=== PATIENT | female | born 1995 | race Two or more races ===

== ENCOUNTER 2025-04-25 18:09 | Emergency (ER) | payer BC, OTHER ==
--- NOTE | 2025-04-25 19:14 | ED.PDOC ---
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 The patient came to the ED with chief complain of 2 hrs of vaginal bleeding, dark read with some clots and possible tissue, she has used only one pad; associated with pelvic pain 5/10, cramp-like pain. The patient reports she is 7 weeks , LMP was 03/10/25, she has not started yet her care. This is her first , her blood type is O(-). The patient denies fever, chills, chest pain, headache or other symptoms. In the ED her BP: 133/96mmHg, HR: 115bpm. The patient will be further assessed. Attestation note: Dr. Choi: I was the supervising attending for this ED encounter. Please see the resident's notes. I have personally seen and evaluated this patient. I was available for questions and consultations. HPI: 30 year old female presents to the ED with a chief complaint of vaginal bleeding onset today (04/25/25) about 2 hours prior to ED arrival. Patient is currently 7 weeks , P:0 LMP 03/10/25. Patient is from [place], is in town due to 's work. She began experiencing abdominal cramping, heavy vaginal bleeding, clots present. Patient states she is O-. Denies fever, chills, fall, injury, dysuria, dizziness, headache, fever, chills, nausea, vomiting, diarrhea. No other symptoms or modifying factors present at this time. Differential diagnosis: Differential diagnosis includes but not limited to DU B, menorrhea, metromenorrhagia, neoplasm, coagulopathy, , trauma, miscarriage, placenta previa, placental abruption, MDM: MDM: patient presented with the above HPI.---vaginal bleeding ---workup was initiated. patient was found with the above mentioned diagnosis. the following medications were ordered: please refer to order lists of meds and tests obtained by myself Dr. Choi. Patient ED course and VS have been stabilized. Patient has been reassessed in the ED and remained in a stable condition. Pertinent incidental findings were discussed with the patient and/or family. Patient/family voices understanding and is agreeable with plan. Patient has been observed in the ED adequate length of time to insure improvement/stability. Escalation of care considered: Consideration of escalation to observation or admission OB Gyne was consulted. Patient was DISCHARGED home in a stable condition. All the reports of any imaging studies that were ordered by myself were reviewed by myself. Chief Complaint: Vaginal Bleed Time Seen by MD: 18:43 Reviewed Notes: Nurses Notes, Medications, Allergies Allergies: Uncoded Allergies: SULFA (Allergy, Unknown, 04/25/25) Home Meds Active Scripts Ondansetron Odt 4MG Tab (ZOFRAN PO) 4 Mg Tb, 4 MG PO Q8HPRN PRN for 3 Days, #9 TAB ODT TAB-DISSOLVE IN MOUTH, THEN SWALLOW Prov:SHELLY CHOI DO 04/26/25 Cephalexin Monohydrate (Cephalexin) 500 Mg Cap, 500 MG PO Q8HR for 5 Days, #15 CAP Prov:SHELLY CHOI DO 04/26/25 Information Source: Patient, Spouse Mode of Arrival: Ambulatory Timing: Hours Severity: Moderate Bleeding Quality: Dark, Clotted Onset Of Mass/Bleeding: Spontaneous Past Medical History PAST MEDICAL HISTORY: Denies Surgical History: Denies all surgeries 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 1 Para 0 AB 0 LMP 03/10/2025 Family History Family History: Reviewed,noncontributory to illness Social History Smoker: Other (Nicotine vape, she quit after finding about the .) Alcohol: Denies ETOH Use Drugs: Denies Drug Use Lives In: Home Constitutional: denies: chills, diaphoresis, fatigue, fever, malaise, sweats, weakness, others EENTM: denies: blurred vision, double vision, ear bleeding, ear discharge, ear drainage, ear pain, ear ringing, eye pain, eye redness, hearing loss, mouth pain, mouth swelling, nasal discharge, nose bleeding, nose congestion, nose pain, photophobia, tearing, throat pain, throat swelling, voice changes, others Respiratory: denies: cough, hemoptysis, orthopnea, SOB at rest, shortness of breath, SOB with excertion, stridor, wheezing, others Cardiovascular: denies: chest pain, dizzy spells, diaphoresis, Dyspnea on exertion, edema, irregular heart beat, left arm pain, lightheadedness, palpitations, PND, syncope, others Gastrointestinal: denies: abdomen distended, abdominal pain, blood streaked bowels, constipated, diarrhea, dysphagia, difficulty swallowing, hematemesis, melena, nausea, poor appetite, poor fluid intake, rectal bleeding, rectal pain, vomiting, others Genitourinary: reports: abnormal vagina bleeding, pain (pelvic pain.), Neurological: denies: dizziness, fainting, headache, left sided numbness, left sided weakness, numbness, paresthesia, pre-existing deficit, right sided numbness, right sided weakness, seizure, speech problems, tingling, tremors, weakness, others Musculoskeletal: denies: back pain, gout, joint pain, joint swelling, muscle pain, muscle stiffness, neck pain, others Integumetry: denies: bruises, change in color, change in hair/nails, dryness, laceration, lesions, lumps, rash, wounds, others Allergic/Immunocompromised: denies: Difficulty Healing, Frequent Infections, Hives, Itching, others Hematologic/Lymphatic: denies: anemia, blood clots, easy bleeding, easy bruising, swollen glands, others Endocrine: denies: excessive hunger, excessive sweating, excessive thirst, excessive urination, flushing, intolerance to cold, intolerance to heat, unexplained weight gain, unexplained weight loss, others Psychiatric: denies: anxiety, bipolar disorder, depression, hopeless, panic disorder, schizophrenia, sleepless, suicidal, others Physical Exam Exam Comments Alert, oriented x3. General Appearance: Mild Distress HEENT: Normal ENT Inspection, Pharynx Normal, TMs Normal Neck: Full Range of Motion, Non-Tender, Normal, Normal Inspection Respiratory: Chest Non-Tender, Lungs Clear, No Accessory Muscle Use, No Respiratory Distress, Normal Breath Sounds Cardiovascular: No Edema, No JVD, No Murmur, No Gallop, Normal Peripheral Pulses, Regular Rate/Rhythm Breast Exam: Deferred Gastrointestinal: No Organomegaly, Non Tender, No Pulsatile Mass, Normal Bowel Sounds, Soft Genitalia: Deferred Pelvic: Deferred Rectal: Deferred Extremities: No calf tenderness, Normal capillary refill, Normal inspection, Normal range of motion, Non-tender, No pedal edema Musculoskeletal : Apperance: Normal Neurologic: Alert, motor operator II-XII nml as Tested, No Motor Deficits, Normal Affect, Normal Mood, No Sensory Deficits Cerebellar Function: Normal Reflexes: Normal Skin: Dry, Normal Color, Warm Lymphatic: No Adenopathy Was a procedure done? Was a procedure done?: No Differential Diagnosis (RESEARCH FOOD TECHNOLOGIST) Vaginal Bleeding: - Incomplete, - Inevitable, - Threatened, Abruptio Placentae, Ectopic Mass / Lesion: N/A Vaginal Discharge: N/A X-Ray, Labs, Meds, VS Vital Signs Date Time Temp Pulse Resp B/P (MAP) Pulse Ox O2 Delivery O2 Flow Rate FiO2 04/26/25 02:55 98.7 85 18 127/85 98.7 04/26/25 01:19 98.4 90 18 116/96 (103) 96 98.4 04/25/25 23:22 92 17 114/98 (103) 98 04/25/25 23:09 98.4 98 16 132/94 (107) 97 98.4 04/25/25 22:45 114/68 04/25/25 20:15 97.8 84 14 113/79 (90) 98 97.8 04/25/25 20:15 84 14 98 Room Air 04/25/25 18:11 98.5 115 18 133/96 96 98.5 Lab Test 04/25/25 20:40 04/25/25 19:32 Range/Units Urine Color Light-orange Yellow Urine Clarity Turbid H Clear Urine pH 6.5 5.0-9.0 Urine Specific [place] 1.029 1.001-1.035 Urine Protein 1+ H Negative Urine Ketones 4+ H Negative Urine Blood 3+ H Negative /uL Urine Nitrite Negative Negative Urine Bilirubin Negative Negative Urine Urobilinogen Normal Negative mg/dL Urine Leukocyte Esterase 1+ Negative /uL Urine RBC 469 0 - 4 /hpf Urine Microscopic WBC 9 H 0-5 /HPF Urine Squamous Epithelial Cells Few <5 /hpf Urine Bacteria None seen None Seen /hpf Urine Mucus Few None Seen Urine Glucose Normal Normal mg/dL White Blood Count 9.6 4.4-10.8 10^3/uL Red Blood Count 4.36 4.0-5.20 10^6/uL Hemoglobin 13.0 12.2-16.2 g/dL Hematocrit 37.5 36.0-46.0 % Mean Corpuscular Volume 85.9 80.0-100.0 fL Mean Corpuscular Hemoglobin 29.7 28.0-32.0 pg Mean Corpuscular Hemoglobin Concent 34.6 32.0-36.0 g/dL Red Cell Distribution Width 12.4 11.8-14.3 % Platelet Count 301 140-450 10^3/uL Mean Platelet Volume 8.1 6.9-10.8 fL Neutrophils (%) (Auto) 66.0 37.0-80.0 % Lymphocytes (%) (Auto) 24.5 10.0-50.0 % Monocytes (%) (Auto) 8.8 0.0-12.0 % Eosinophils (%) (Auto) 0.1 0.0-7.0 % Basophils (%) (Auto) 0.6 0.0-2.0 % Neutrophils # (Auto) 6.4 1.6-8.6 10 ^3/uL Lymphocytes # (Auto) 2.4 0.4-5.4 10 ^3/uL Monocytes # (Auto) 0.8 0-1.3 10 ^3/uL Eosinophils # (Auto) 0 0-0.8 10 ^3/uL Basophils # (Auto) 0.1 0-0.2 10 ^3/uL Nucleated Red Blood Cells 0.0 % Sodium Level 142 136-145 mmol/L Potassium Level 3.6 3.5-5.1 mmol/L Chloride Level 106 98-107 mmol/L Carbon Dioxide Level 23 20-31 mmol/L Anion Gap 13 5-15 Blood Urea Nitrogen 10 9-23 mg/dL Creatinine 0.68 0.550-1.02 mg/dL Glomerular Filtration Rate Calc 120 >90 mL/min BUN/Creatinine Ratio 14.7 10.0-20.0 Serum Glucose 118 H 74-106 mg/dL Calcium Level 9.9 8.7-10.4 mg/dL Total Bilirubin 0.5 0.2-1.0 mg/dL Aspartate Amino Transferase (AST) 20 13-40 U/L Alanine Aminotransferase (ALT) 16 7-40 U/L Alkaline Phosphatase 60 46-116 U/L Total Protein 8.4 H 5.7-8.2 g/dL Albumin 5.2 H 3.2-4.8 g/dL Beta HCG, Quantitative 1569.8 H 1.5-4.2 mIU/mL [facility] [address] [facility] [address] Ph: [phone] DIAGNOSTIC IMAGING Diagnostic Imaging Report : [id number] Signed PATIENT: MONICA CAMARILLO ACCT: [id number] UNIT: [id number] : 1995 LOC: ER ROOM / BED: / AGE / SEX: 30 / F ADM STATUS: REG ER SERVICE 15 ORDERING PHYSICIAN: SHELLY CHOI DO PROCEDURE(s): OB4US - OB ULTRASOUND COMP LESS 14WKS REASON: VAG BLEED ORDER NUMBER(s): [id number], ACCESSION NUMBER(s): [id number] INDICATION: VAG BLEED TECHNIQUE: Multiple real-time grayscale transabdominal and transvaginal sonographic images along with color and duplex Doppler of the uterus and ovaries were obtained. COMPARISON: None FINDINGS: The uterus measures 6.4 x 5.2 x 4.3 cm. No intrauterine gestational sac or cavitary fluid. The endometrial stripe measures 7 mm. Right ovary measures 1.9 x 1.5 x 2.2 cm with normal Doppler color flow. Left ovary measures 3.1 x 1.7 x 2.3 cm with normal Doppler color flow. No visualized ascites. IMPRESSION: No intrauterine gestational sac. In the setting of positive laboratory processed for the exam is consistent with of unknown location, a designation which includes normal early and does not exclude ectopic . Recommend trending of quantitative beta HCG values and follow-up ultrasound in 2 weeks for reassessment, or sooner if clinically indicated. ATED BY: TOBY CAMPOVERDE MD DICTATED DATE/TIME: 04/25/252250 SIGNED BY: TOBY CAMPOVERDE MD SIGNED DATE/TIME: 04/25/252250 CC: X-Ray, Labs, Meds, VS Comment The patient has been reassessed, the patient still report vaginal bleeding. CBC: WBC: 9.6x10e3, Hb: 13.0 BMP:Na: 142mmol/l K: 3.6mmol/l Abdominal US report is still pending Time of 1ST Reevaluation: 20:14 Reevaluation 1ST: Unchanged Time of 2ND Reevaluation: 00:44 (The case was discussed with the OB Gyne on- call team (HPI, physical exam, labs and diagnostic tests that were available at the time of disposition, ED course, treatment plan) on the phone. They recommend RhoGAM 300 mcg and outpatient follow up in two days for beta-hCG and repeat ultrasound.) Reevaluation 2ND: Improved Patient Education/Counseling: Diagnosis, Treatment, Prognosis, Need For Follow Up Family Education/Counseling: Diagnosis, Treatment, Prognosis, Need For Follow Up Departure 1 Departure Time of Disposition: 00:37 Impression: Primary Impression: Threatened in early Additional Impression: Need for rhogam due to Rh negative mother Disposition: HOME / SELF CARE / HOMELESS Condition: Stable Additional Instructions: Additional instructions: Please read all instructions provided in this packet carefully. You MUST follow-up with your primary care/family doctor in 1 to 2 days. If you are unable to see your primary care/family doctor, please return to our emergency room for re-assessment and re-evaluation in 1 to 2 days. Return to the emergency room here in our facility or to the nearest ER [facility] if your symptoms change or worsen. CONSULTATIONS: you MUST Follow-up for consultation as soon as possible with: Dr.-OB Reid doctor in 1-2 days. Please call for appointment You MUST call the consultants office yourself to make an appointment. You may need to arrange that through your insurance and/or your primary/family doctor. If you are unable to see the instructional systems design consultant in 1 to 2 days, you must return to our emergency room (or any other ER of your choice) for re-assessment and re- evaluation. Adequate fluid hydration. Although you have been discharged from the Emergency Department, this does not mean that you have a "clean bill of health". No definitive diagnosis for your symptoms has been made today. It is possible that you are in the process of developing a serious illness. This is why you must return to the ED without fail if any new or worsening symptoms develop. Absolute pelvic rest. Take daily iron supplements. Repeat beta-hCG levels in 48-72 hours. Beta HCG from 04/25/25 at 19:32, 1569.8 Repeat pelvic ultrasound in two days. Below is a copy of your radiological report for follow up: [facility] [address] [place] [id number] Ph: [phone] DIAGNOSTIC IMAGING Diagnostic Imaging Report : [id number] Signed PATIENT: MONICA CAMARILLO ACCT: [id number] UNIT: [id number] : 1995 LOC: ER ROOM / BED: / AGE / SEX: 30 / F ADM STATUS: REG ER SERVICE 15 ORDERING PHYSICIAN: SHELLY CHOI DO PROCEDURE(s): OB4US - OB ULTRASOUND COMP LESS 14WKS REASON: VAG BLEED ORDER NUMBER(s): [id number], ACCESSION NUMBER(s): [id number] INDICATION: VAG BLEED TECHNIQUE: Multiple real-time grayscale transabdominal and transvaginal sonographic images along with color and duplex Doppler of the uterus and ovaries were obtained. COMPARISON: None FINDINGS: The uterus measures 6.4 x 5.2 x 4.3 cm. No intrauterine gestational sac or cavitary fluid. The endometrial stripe measures 7 mm. Right ovary measures 1.9 x 1.5 x 2.2 cm with normal Doppler color flow. Left ovary measures 3.1 x 1.7 x 2.3 cm with normal Doppler color flow. No visualized ascites. IMPRESSION: No intrauterine gestational sac. In the setting of positive laboratory processed for the exam is consistent with of unknown location, a designation which includes normal early and does not exclude ectopic . Recommend trending of quantitative beta HCG values and follow-up ultrasound in 2 weeks for reassessment, or sooner if clinically indicated. ATED BY: TOBY CAMPOVERDE MD DICTATED DATE/TIME: 04/25/252250 SIGNED BY: TOBY CAMPOVERDE MD SIGNED DATE/TIME: 04/25/252250 CC: e-Prescriptions Ondansetron Odt 4MG Tab (ZOFRAN PO) 4 Mg Tb 4 MG PO Q8HPRN PRN for 3 Days, #9 TAB ODT TAB-DISSOLVE IN MOUTH, THEN SWALLOW Prov: SHELLY CHOI DO 04/26/25 Cephalexin Monohydrate (Cephalexin) 500 Mg Cap 500 MG PO Q8HR for 5 Days, #15 CAP Prov: SHELLY CHOI DO 04/26/25 Discharged With: Self Comments Goals of care discussed with the patient > 35 min. Discussed plan of care with Dr. Choi Code status: Full code PCP: Does not recall name, The patient is from [place], she is visiting in the area. Plan discussed with: Patient, the patient agrees with the plan. Critical Care Note Critical Care Time?: No Stability Stability form required: No Heart Score Heart Score: Heart Score Response (Comments) Value History N/A 0 EKG N/A 0 Age N/A 0 Risk Factors N/A 0 Troponin N/A 0 Total 0 I personally scribed for RAUL BEATTY RESIDENT ([email or web address]) on 04/26/25 at 00:13. Electronically submitted by Randi Balderrama ([email or web address]). I personally scribed for RAUL BEATTY RESIDENT ([email or web address]) on 04/26/25 at 00:50. Electronically submitted by Randi Balderrama ([email or web address]). RAUL BEATTY Apr 25, 2025 19:14 SHELLY CHOI DO Apr 26, 2025 00:37
[2025-04-25 19:52] LABS: Hematocrit 37.5 % (36.0-46.0); Hemoglobin 13.0 g/dL (12.2-16.2); Mean Corpuscular Hemoglobin 29.7 pg (28.0-32.0); Mean Corpuscular Volume 85.9 fL (80.0-100.0); Nucleated Red Blood Cells % 0.0 %
[2025-04-25 20:05] LABS: Alanine Aminotransferase 16 U/L (7-40); Alkaline Phosphatase 60 U/L (46-116); Anion Gap 13 (5-15); BUN/Creatinine Ratio 14.7 (10.0-20.0); Blood Urea Nitrogen 10 mg/dL (9-23); Calcium 9.9 mg/dL (8.7-10.4); Carbon Dioxide 23 mmol/L (20-31); Chloride 106 mmol/L (98-107); Potassium 3.6 mmol/L (3.5-5.1); Sodium 142 mmol/L (136-145)
[2025-04-25 20:06] LABS: Bilirubin, Total 0.5 mg/dL (0.2-1.0)
[2025-04-25 20:11] LABS: Albumin 5.2 g/dL (3.2-4.8); Glucose 118 mg/dL (74-106); Total Protein 8.4 g/dL (5.7-8.2)
[2025-04-25] MEDS: SODIUM CHLORIDE 0.9% 1,000 ML IV ONE (20:13)
[2025-04-25] MEDS: ONDANSETRON HCL 4 MG/2 ML VIAL ONE ×2 (20:18)
[2025-04-25] MEDS: HYDROcodone-ACET 5/325MG TAB PO ONE (20:36)
[2025-04-25] MEDS: fentaNYL CITRATE 100 MCG/2 ML VL IV ONE (22:45)
--- NOTE | 2025-04-25 22:54 | DVH ---
INDICATION: VAG BLEED TECHNIQUE: Multiple real-time grayscale transabdominal and transvaginal sonographic images along with color and duplex Doppler of the uterus and ovaries were obtained. COMPARISON: None FINDINGS: The uterus measures 6.4 x 5.2 x 4.3 cm. No intrauterine gestational sac or cavitary fluid. The endometrial stripe measures 7 mm. Right ovary measures 1.9 x 1.5 x 2.2 cm with normal Doppler color flow. Left ovary measures 3.1 x 1.7 x 2.3 cm with normal Doppler color flow. No visualized ascites. IMPRESSION: No intrauterine gestational sac. In the setting of positive laboratory processed for the e xam is consistent with of unknown location, a designation which includes normal early pregn doris and does not exclude ectopic . Recommend trending of quantitative beta HCG values and f ollow-up ultrasound in 2 weeks for reassessment, or sooner if clinically indicated.
[2025-04-26 00:47] LABS: Urine Protein, UAD 1+ (Negative)
[2025-04-26 01:19] VITALS: O2SAT 96
[2025-04-26] MEDS: ONDANSETRON HCL 4 MG/2 ML VIAL ONE ×2 (01:53→02:56)
[2025-04-26] MEDS ORDERED: ZOFR4T PO (02:44)
[2025-04-26] MEDS ORDERED: CEPH500C PO (02:44)
[2025-04-26 02:55] VITALS: BP 127/85; PULSE 85; RESP 18; TEMP 98.7
== END 2025-04-26 02:35 | disposition home or self-care (01) ==
LOC: ER 18:15
DX: O20.0 Threatened abortion (principal); Z3A.01 Less than 8 weeks gestation of pregnancy; Z88.2 Allergy status to sulfonamides
CPT/HCPCS: 36415; 76801; 76817; 80053; 81001; 84702; 85025; 86850; 86900; 86901; 96361; 96372; 96374; 96375; 96376; 99285; J2405; J3010; J7030; 36430; 90384